=== PATIENT | female | born 1945 | race Caucasian/White ===

== ENCOUNTER 2019-05-14 10:08 | Emergency (ER) | payer MEDICARE, BC ==
[~2019-05-14] VITALS: Ht 160 cm; Wt 69.5 kg
[~2019-05-14 10:08] MED LIST: ASPI-611 PO; CALC600T69 PO; DOCU-148 PO; HYDR-4353 PO; HYDR12.55 PO; IBUP-2264 PO; LOSA50TA3 PO; MULT-1085 PO; OM-31CAP9 PO; RALO60TA55 PO; SENN17.26 PO; [UNRECOGNIZED DRUG - CODE] PO
[2019-05-14 13:08] LABS: UA COLLECTION TYPE CLN CATCH MIDSTREAM
[2019-05-14 13:09] LABS: CLARITY,URINE Bloody (Clear); COLOR,URINE RED (Yellow)
[2019-05-14 13:18] LABS: BACTERIA,URINE 3+ /HPF (Neg); RBC,URINE TNTC /HPF (0-2); SQUAMOUS EPITHELIAL CELL,UR NONE SEEN /LPF (FEW); WBC,URINE 50-100 /HPF (0-4)
[2019-05-14] MEDS ORDERED: CEPH500C5 PO (13:48)
[2019-05-14 14:05] VITALS: BP 116/68
== END 2019-05-14 14:10 | disposition home or self-care (01) ==
LOC: ER 10:08
DX: N39.0 Urinary tract infection, site not specified (principal); Z79.82 Long term (current) use of aspirin; Z79.899 Other long term (current) drug therapy; Z79.2 Long term (current) use of antibiotics; Z79.1 Long term (current) use of non-steroidal anti-inflammatories (NSAID); Z88.0 Allergy status to penicillin
CPT/HCPCS: 81001; 87077; 87088; 87186; 99283